=== PATIENT | male | born 1995 | race Caucasian/White ===

== ENCOUNTER 2017-05-13 19:26 | Emergency (ER) | payer SELFPAY ==
[2017-05-13] MEDS: IBUPROFEN 600 MG TAB PO (21:12)
[2017-05-13] MEDS: LIDOCAINE 1%/EPI 30 ML INJ INJ (21:13)
[2017-05-13] MEDS: DIPHTH/TET/ACEL PERTUSS (ADULT) 0.5 ML VIAL IM* (21:13)
[2017-05-13] MEDS: CEPHALEXIN 500 MG CAP PO (21:32)
== END 2017-05-13 23:09 | disposition home or self-care (01) ==
LOC: FTE 19:26
DX: S81.811A Laceration without foreign body, right lower leg, initial encounter (principal); X99.1XXA Assault by knife, initial encounter; Y92.9 Unspecified place or not applicable; Z23 Encounter for immunization
CPT/HCPCS: 12001; 73590; 90471; 90715; 99283-25

== ENCOUNTER 2017-07-04 08:30 | Emergency (ER) | payer MEDICAID | END 2017-07-04 09:30 | disposition home or self-care (01) | LOC: FTE 08:30 | DX: Z48.02 Encounter for removal of sutures (principal) | CPT/HCPCS: 99281; Z7502 ==